=== PATIENT | female | born 2005 | race Caucasian/White ===

== ENCOUNTER 2024-01-19 11:09 | Emergency (ER) | payer OTHER, SELFPAY ==
[2024-01-19 11:14] VITALS: BP 111/77; BMI 22.6
[2024-01-19 11:55] LABS: % Basophils 0.5 % (0-2); % Immature Granulocytes 0.2 % (0-0.5); % Lymphocytes 29.9 % (20.5-51.1); % Monocytes 8.9 % (1.7-9.3); % Neutrophils 59.5 % (42.2-75.2); Absolute Eosinophils 0.1 10^3/uL (0-0.7); Absolute Lymphocytes 2.6 10^3/uL (1.2-3.4); Absolute Monocytes 0.8 10^3/uL (0.1-0.6); Absolute Neutrophils 5.2 10^3/uL (1.4-6.5); Hematocrit 35.4 % (37.0-47.0); Hemoglobin 11.4 g/dL (12.0-16.0); Mean Corp Hgb Conc. 32.2 g/dL (33.0-37.0); Mean Corpuscular Hgb 26.7 pg (27.0-31.0); Mean Corpuscular Volume 82.9 fL (81.0-99.0); Mean Platelet Volume 10.1 fL (7.4-10.4); Nucleated Red Blood Cells % 0 %; Platelet Count 297 10^3/uL (130-400); Red Blood Cell Count 4.27 10^6/uL (4.20-5.40); Red Cell Dist. Width 14.2 % (11.5-14.5); White Blood Cell Count 8.7 10^3/uL (4.8-10.8)
[2024-01-19 12:09] LABS: ALT (SGPT) 16 U/L (0-35); AST (SGOT) 29 U/L (14-36); Albumin 4.5 g/dl (3.5-5.0); Alkaline Phosphatase 79 U/L (38-126); Blood Urea Nitrogen 13 mg/dl (7-17); Carbon Dioxide 26 mmol/L (22-30); Chloride 105 mmol/L (98-107); Estimated Creatinine Clearance 102 ml/min; Glucose 90 mg/dl (70-99); Potassium 4.3 mmol/L (3.5-5.1); Sodium 137 mmol/L (135-145); Total Bilirubin 0.3 mg/dl (0.2-1.3); Total Protein 7.3 g/dl (6.3-8.2); eGFR > 60.00
--- NOTE | 2024-01-19 13:06 | ED.GENMED ---
History of Present Illness
General
Chief Complaint: Vaginal Bleeding
Source: patient
Exam Limitations: none
Time Seen by Provider: 01/19/24 12:47
Nursing documentation reviewed up to this point in time: agreed with
Travel History
Have you had any contact with someone who has COVID-19?: No
Do you have any symptoms of coronavirus? Fever > 100 degrees, chills, cough, shortness of breath, sore throat, loss of taste or smell, muscle aches, or headache?: No
History of Present Illness
History of Present Illness:
Patient status post elective 'medical ' [address] [facility], at a time when she was approximately 10 weeks , presents to ED secondary to persistent bleeding since taking the medication. Patient was advised to follow-up
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 via phone call after treatment, but has not done so. Denies fever or chills. Denies nausea or vomiting. Patient reports passage of bright red blood, without blood clots. Denies dizziness or weakness.
Denies shortness of breath. Patient otherwise is healthy without any medical problems. Patient has been 1 additional time, and has a 4-year-old child at home.
Review of Systems
Review of Systems
Allergies reviewed?: Yes
All Other Systems: ROS reviewed and negative except as documented in HPI and ROS
Constitutional: Reports no symptoms; Denies fever
EENT: Reports no symptoms
Respiratory: Reports no symptoms; Denies trouble breathing
Cardiac: Reports no symptoms
ABD/GI: Reports abdominal pain; Denies vomiting
: Reports bleeding
Musculoskeletal: Reports no symptoms
Skin: Reports no symptoms
Neurological: Reports no symptoms; Denies dizzy or weakness
Phy Exam
Physical Exam
Physical Exam:
Physical Exam
General: no apparent distress, not acutely ill. afebrile
Head: nc/at. eomi
Neck: supple. normal range of motion.
Abdomen: normal bowel sounds. not tender.
Pelvis: (SULLY Rosales, at bedside): speculum exam - no active bleeding noted
Neuro: alert and oriented. no focal neurological deficits
Skin: no rash
Psychiatric: well kept. interactive and cooperative
Extremities: no edema. no calf tenderness.
Course
Orders/Labs/Results
Orders:
Orders
01/19/24 11:40
CMP [Comprehensive Metabolic Panel] Urgent
01/19/24 11:41
Type+Screen Urgent
Beta HCG Quantitative Urgent
Complete Blood Count/With Diff Urgent
01/19/24 12:49
Add On- LAB Urgent
Tests Added?: serum HCG, quantitative
01/19/24 13:31
US Pelvis W Transvag Combined Urgent
Comment:
Reason For Exam: vag bleeding, s/p medical
Abnormal Lab Results
01/19/24 01/19/24
11:40 11:41
Hgb 11.4 L g/dL
(12.0-16.0)
Hct 35.4 L %
(37.0-47.0)
MCH 26.7 L pg
(27.0-31.0)
MCHC 32.2 L g/dL
(33.0-37.0)
Absolute Monos (auto) 0.8 H 10^3/uL
(0.1-0.6)
Creatinine 0.5 L mg/dL
(0.6-1.0)
Antibody Screen Positive A
(Negative)
01/19/24 11:41
01/19/24 11:40
Vital Signs
Initial and Last Documented VS:
Initial Vital Signs
Temp Pulse Resp BP Pulse Ox
98.4 F 102 20 111/77 99
01/19/24 11:14 01/19/24 11:14 01/19/24 11:14 01/19/24 11:14 01/19/24 11:14
Last Documented Vital Signs
Temp Pulse Resp BP Pulse Ox
98.4 F 102 20 111/77 99
01/19/24 11:14 01/19/24 11:14 01/19/24 11:14 01/19/24 11:14 01/19/24 11:14
MDM/Problems Addressed
MDM/Problems Addressed:
Per patient, patient received Rhogam during initial medical treatment 8 weeks ago.
H/H stable. No active bleeding noted on exam.
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 Advised return to ED immediately with worsening symptoms.
*Critical Care Note
Total Time (30-74mins, 75-104mins- exclusive of procedures): Not Applicable
ED Attending Note
-
Portions of this chart may have been created with voice recognition software.� Occasional wrong word or��sound alike� substitutions may have occurred due to the inherent limitations of voice recognition software.
Discharge Plan
Departure
Patient Disposition: Home (Routine Discharge)
Date of Disposition: 01/19/24
Time of Disposition: 16:34
Patient with high blood pressure during this ER visit?: No
Discharge Problem:
Vaginal bleeding
Instructions: Miscarriage (DC)
Referrals:
Mirza Conti PA-C [Family Provider] -
Stand Alone Forms: Return to Work
Activity Restrictions/Additional Instructions:
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 In ED, US revealed possibility of retained products of conception, which may be contributing to your continual vaginal bleeding.
Interventions
Interventions:
*Risk Screen - Suicide Last Done: 01/19/24 11:14
*General Assessment Last Done: 01/19/24 13:07
*Neglect/Abuse Screening Last Done: 01/19/24 11:14
ED- Fall Risk Assessment Last Done: 01/19/24 16:47
*ED COVID-19 Vaccine History Last Done: 01/19/24 11:14
*Nursing Disposition Last Done: 01/19/24 16:47
ED-Female Genitourinary Assessment Last Done: 01/19/24 13:06
Discharge Date and Time
Discharge Date/Time: 01/19/24 16:47
Print Language: MONGOLIAN
[2024-01-19 14:27] LABS: Beta HCG Quantitative 15.78 mIU/ml
== END 2024-01-19 16:47 | disposition home or self-care (01) ==
LOC: EMR 11:09
PROVIDERS: Emergency Medicine; EMERGENCY PHYSICIAN Emergency Medicine; FAMILY PHYSICIAN Physician Assistant
DX: N93.9 Abnormal uterine and vaginal bleeding, unspecified (principal)
CPT/HCPCS: 99284; 76830; 76856; 80053; 84702; 85025; 86850; 86870; 86900; 86901

== ENCOUNTER → 2024-11-20 11:44 | Outpatient (REF) | payer OTHER, SELFPAY | LOC: RAD 11:44 | PROVIDERS: ATTENDING PHYSICIAN Physician Assistant Medical | DX: M54.50 Low back pain, unspecified (principal) | CPT/HCPCS: 72110; 73502 ==

== ENCOUNTER 2024-12-02 12:00 | Emergency (ER) | payer OTHER, SELFPAY ==
[2024-12-02 12:03] VITALS: BP 107/73
[2024-12-02 12:59] VITALS: BMI 23.9
--- NOTE | 2024-12-02 14:15 | ED.GENMED ---
History of Present Illness
General
Chief Complaint: Musculo-Skeletal Complaint
Source: patient
Exam Limitations: none
Time Seen by Provider: 12/02/24 13:56
Nursing documentation reviewed up to this point in time: agreed with
History of Present Illness
History of Present Illness:
19-year-old female with no past medical history presents emergency department today with concerns of bilateral calf pain that started yesterday. She states that this happened without any injury. She reports that she noticed to yesterday when she
was sitting on the couch. She also noted that she felt like both legs felt swollen. She denies any burning or numbness or tingling sensation in her lower extremities. Patient states that she does have a history of degenerative disc disease and
reports that occasionally she will get paresthesias in her right leg but is not currently experiencing this. She denies any low back pain currently. She denies any difficulty ambulating. She denies any recent falls. She states that she does not
exercise and denies any overuse injury. She denies any recent long distance travel, any chest pain, any shortness of breath, any use of oral contraceptives. She denies any fevers or chills nausea vomiting abdominal pain. She denies any redness
to her lower extremities. She states that at times will feel like a cramping sensation but states that the calves are tender to her palpation.
Review of Systems
Review of Systems
All Other Systems: ROS reviewed and negative except as documented in HPI and ROS
Phy Exam
Physical Exam
Physical Exam:
General: Patient is well appearing and in no acute distress; non-toxic
Skin: Warm and dry, no rashes or lesions
Head: Normocephalic, atraumatic
Eyes: Sclera non-icteric. EOMs intact.
Cardiac: Regular rate
Peripheral Vascular: No lower extremity swelling or edema obvious to me on my exam, calves symmetric. 2+ dorsalis pedis and posterior tibial pulses bilaterally.
Pulm: Normal respiratory effort
Musculoskeletal: No bony tenderness to palpation of the bilateral lower extremities, no palpable bony deformities. 5/5 strength in bilateral lower extremeties.
Neuro: CN II-XII intact, no focal neurologic deficits. Sensation intact bilaterally.
Psychiatric: Appropriate mood and affect.
Course
Orders/Labs/Results
Orders:
Orders
12/02/24 14:11
Venous Doppler Lwr Ext Bilat [US Periph Venous LOWER Ext Morales] Urgent
Comment:
Reason For Exam: bilateral lower ext pain and swelling
12/02/24 14:15
Complete Blood Count/With Diff Urgent
Comprehensive Metabolic Panel Urgent
Abnormal Lab Results
12/02/24
14:15
Hgb 11.6 L g/dL
(12.0-16.0)
Hct 35.6 L %
(37.0-47.0)
MCHC 32.6 L g/dL
(33.0-37.0)
MPV 10.6 H fL
(7.4-10.4)
Absolute Monos (auto) 0.7 H 10^3/uL
(0.1-0.6)
Creatinine 0.5 L mg/dL
(0.6-1.0)
12/02/24 14:15
12/02/24 14:15
Vital Signs
Initial and Last Documented VS:
Initial Vital Signs
Temp Pulse Resp BP Pulse Ox
98.2 F 90 16 107/73 100
12/02/24 12:03 12/02/24 12:03 12/02/24 12:03 12/02/24 12:03 12/02/24 12:03
Last Documented Vital Signs
Temp Pulse Resp BP Pulse Ox
98.2 F 88 18 108/76 100
12/02/24 12:03 12/02/24 16:09 12/02/24 16:09 12/02/24 16:09 12/02/24 16:09
MDM/Problems Addressed
Differential Diagnosis Includes:
ddx include DVT, cellulitis, muscle strain/sprain, electrolyte derangement
MDM/Problems Addressed:
19-year-old female with no past medical history who presents emergency department today with concerns of bilateral lower extremity pain which started yesterday. She denies any difficulty ambulating. She denies any recent falls or injury to the
area. She is no obvious DVT risk factors. On exam, she has no evidence of significant lower extremity swelling and she has warm well-perfused extremities with strong distal pulses. Sensation intact and strength 5 out of 5 bilaterally. Ultrasound
is negative for any DVT. CBC and CMP unremarkable. Suspect muscle strain. Recommended to apply compression with Oli wrap's and to try elevating her legs at home and follow closely with her PCP and continue monitor her symptoms should she notice
any acute worsening. Return precautions discussed. Patient stable for discharge
Chronic conditions affecting care:
n/a
*Pulse Oximetry
Patient hypoxic: no
*Critical Care Note
Total Time (30-74mins, 75-104mins- exclusive of procedures): Not Applicable
Data Reviewed
Review of Other/Old Records Reveals: Records (Reviewed ER physician documentation from 01/19/2024 patient was seen for bleeding after medical )
Source: patient and records
ED Attending Note
-
Portions of this chart may have been created with voice recognition software.� Occasional wrong word or��sound alike� substitutions may have occurred due to the inherent limitations of voice recognition software.
Discharge Plan
Departure
Patient Disposition: Home (Routine Discharge)
Date of Disposition: 12/02/24
Time of Disposition: 16:09
Patient with high blood pressure during this ER visit?: No
Condition: Good
Discharge Problem:
Bilateral calf pain
Instructions: Swelling, Lower Extremity Muscle Strain (DC)
Referrals:
Dank Wright, [Primary Care Provider] -
Activity Restrictions/Additional Instructions:
Please schedule appointment with your primary care provider in the next few days for reassessment.
Please keep your legs elevated at home. Compression with oli wrap may also help with your symptoms.
PLEASE RETURN EMERGENCY DEPARTMENT TODAY SHOULD TO EXPERIENCE CHEST PAIN, SHORTNESS OF BREATH, LIGHTHEADEDNESS OR DIZZINESS, LOSS OF SENSATION OR LOWER EXTREMITIES, PALLOR IN YOUR LOWER EXTREMITIES, OR ANY OTHER SIGNS OR SYMPTOMS WORRISOME TO YOU.
Interventions
Interventions:
*Risk Screen - Suicide Last Done: 12/02/24 12:03
*General Assessment Last Done: 12/02/24 12:55
*Neglect/Abuse Screening Last Done: 12/02/24 12:03
*ED COVID-19 Vaccine History Last Done: 12/02/24 12:55
*Nursing Disposition Last Done: 12/02/24 16:09
ED-Musculoskeletal Assessment Last Done: 12/02/24 12:55
Discharge Date and Time
Discharge Date/Time: 12/02/24 16:18
Print Language: LAO
[2024-12-02 14:38] LABS: % Basophils 0.5 % (0-2); % Immature Granulocytes 0.1 % (0-0.5); % Neutrophils 49.4 % (42.2-75.2); Absolute Eosinophils 0.1 10^3/uL (0-0.7); Absolute Lymphocytes 3.2 10^3/uL (1.2-3.4); Absolute Monocytes 0.7 10^3/uL (0.1-0.6); Absolute Neutrophils 3.9 10^3/uL (1.4-6.5); Hematocrit 35.6 % (37.0-47.0); Hemoglobin 11.6 g/dL (12.0-16.0); Mean Corp Hgb Conc. 32.6 g/dL (33.0-37.0); Mean Corpuscular Hgb 27.2 pg (27.0-31.0); Mean Corpuscular Volume 83.6 fL (81.0-99.0); Mean Platelet Volume 10.6 fL (7.4-10.4); Nucleated Red Blood Cells % 0 %; Platelet Count 251 10^3/uL (130-400); Red Blood Cell Count 4.26 10^6/uL (4.20-5.40); Red Cell Dist. Width 14.1 % (11.5-14.5); White Blood Cell Count 7.9 10^3/uL (4.8-10.8)
[2024-12-02 14:55] LABS: ALT (SGPT) 15 U/L (0-35); AST (SGOT) 19 U/L (14-36); Alkaline Phosphatase 76 U/L (38-126); Blood Urea Nitrogen 12 mg/dl (7-17); Calcium 9.6 mg/dl (8.4-10.2); Carbon Dioxide 25 mmol/L (22-30); Chloride 105 mmol/L (98-107); Estimated Creatinine Clearance 101 ml/min; Glucose 92 mg/dl (70-99); Sodium 137 mmol/L (135-145); Total Bilirubin 0.3 mg/dl (0.2-1.3); Total Protein 6.8 g/dl (6.3-8.2); eGFR > 60.00
[2024-12-02 16:09] VITALS: BP 108/76
== END 2024-12-02 16:18 | disposition home or self-care (01) ==
LOC: EMR 12:00
PROVIDERS: Physician Assistant; EMERGENCY PHYSICIAN Emergency Medicine; PRIMARYCARE PHYSICIAN Family Medicine
DX: M79.661 Pain in right lower leg (principal); M79.662 Pain in left lower leg
CPT/HCPCS: 99284; 80053; 85025; 93970

== ENCOUNTER → 2025-02-25 10:08 | Outpatient (REF) | payer OTHER, SELFPAY | LOC: RAD 10:08 | PROVIDERS: ATTENDING PHYSICIAN Physician Assistant Medical | DX: M25.512 Pain in left shoulder (principal); M25.511 Pain in right shoulder; M54.9 Dorsalgia, unspecified | CPT/HCPCS: 72050; 72072; 73030 ==

== ENCOUNTER 2025-08-24 10:37 | Emergency (ER) | payer OTHER, SELFPAY ==
[2025-08-24 10:45] VITALS: BP 112/73
[2025-08-24 11:10] LABS: Hematocrit 38.2 % (37.0-47.0); Hemoglobin 12.6 g/dL (12.0-16.0); Mean Corp Hgb Conc. 33.0 g/dL (33.0-37.0); Mean Corpuscular Volume 85.3 fL (81.0-99.0); Nucleated Red Blood Cells % 0 %; Platelet Count 251 10^3/uL (130-400); Red Cell Dist. Width 14.4 % (11.5-14.5)
[2025-08-24 11:17] LABS: HCG, Serum Qualitative Screen Negative
[2025-08-24 11:26] LABS: ALT (SGPT) 18 U/L (0-35); AST (SGOT) 19 U/L (14-36); Albumin 4.5 g/dl (3.5-5.0); Alkaline Phosphatase 68 U/L (38-126); Blood Urea Nitrogen 11 mg/dl (7-17); Calcium 9.6 mg/dl (8.4-10.2); Carbon Dioxide 26 mmol/L (22-30); Chloride 105 mmol/L (98-107); Glucose 93 mg/dl (70-99); Potassium 4.3 mmol/L (3.5-5.1); Sodium 137 mmol/L (135-145); Total Protein 7.6 g/dl (6.3-8.2); eGFR > 60.00
--- NOTE | 2025-08-24 12:09 | ED.GENMED ---
History of Present Illness
<Ryanne Chen MD, Resident - Last Filed: 08/24/25 12:44>
General
Chief Complaint: Fainting/Passed Out
Source: patient
Time Seen by Provider: 08/24/25 11:40
History of Present Illness
History of Present Illness:
Patient is a 20-year-old female, presented to the ED with dizziness, headache, tiredness and a feeling that she would pass out.
According to the patient, she has been having these recurrent episodes of dizziness for the last year which have become more frequent over the last 6 months and now she experiences them at least 3 times a month where she completely loses
consciousness. Today while she was at work, she felt like she was going to pass out, she saw it coming and just wanted to be in a safe place like a hospital so that she can be evaluated and managed appropriately. It comes in cycles, she feels
exhausted few days before until she passes out. Her last menstrual period was 3 days ago. Reports numbness and tingling's of hand, reticular pattern redness in thighs
She is scheduled for an MRI of the brain by her primary care physician on September 07, for suspected neurological issues like MS
She did see a brass sorter in [place] who recommended that she has sinus arrhythmia and nothing related to her heart that could cause the symptoms. She does run low blood pressures up to 80/40 and he would like to start her on midodrine but he
had has to wait for the MRI to come back.
Review of system dizziness, headache, tiredness, feeling weak. Denies any fever, chills, chest pain, abdominal pain, recent weight gain or loss
Past History
<Ryanne Chen MD, Resident - Last Filed: 08/24/25 12:44>
Past History
ED Past Medical History: None
ED Past Surgical History: Gynecological (D&C in December 2023)
Social History
Tobacco: Non-smoker
Alcohol: None
Drug: None
Personal: Single
Living: alone
Family History
Family History: Other (Thyroid issues, epilepsy, seizures, stroke)
Phy Exam
<Ryanne Chen MD, Resident - Last Filed: 08/24/25 12:44>
General Physical Exam
General Presentation: moderate distress
General Skin: warm and dry
General Habitus: normal
General Mental: alert
Cardiovascular Exam
Cardiovascular Exam: regular rate/rhythm, no gallop, no JVD, no murmur and normal peripheral pulses
Pulmonary Exam
Pulmonary Exam: lungs clear, no respiratory distress, no rales, no crackles and no rhonchi
Gastrointestinal Exam
Gastrointestinal Exam: normal bowel sounds, non tender and soft
Neurological Exam
Neurological Exam: alert, oriented x3, no sensory deficits and other (double vision)
Musculoskeletal Exam
Musculoskeletal Exam: full ROM
Skin Exam
Skin Exam: other (Livedo reticularis of thigh)
Course
<Ryanne Chen MD, Resident - Last Filed: 08/24/25 12:44>
Orders/Labs/Results
Orders:
Orders
08/24/25 10:38
Electrocardiogram (*1) Urgent
Reason for Study: Syncope
EKG- Treatment ONCE
08/24/25 10:52
Test Result ONCE
08/24/25 11:01
Complete Blood Count/With Diff Urgent
Comprehensive Metabolic Panel Urgent
HCG, Serum Qualitative Screen Urgent
Abnormal Lab Results
08/24/25
11:01
Monocytes % 9.4 H %
(1.7-9.3)
08/24/25 11:01
08/24/25 11:01
Vital Signs
Initial and Last Documented VS:
Initial Vital Signs
Temp Pulse Resp BP Pulse Ox
97.6 F 77 18 112/73 100
08/24/25 10:45 08/24/25 10:45 08/24/25 10:45 08/24/25 10:45 08/24/25 10:45
Last Documented Vital Signs
Temp Pulse Resp BP Pulse Ox
97.6 F 77 18 11273 100
08/24/25 10:45 08/24/25 10:45 08/24/25 10:45 08/24/25 10:45 08/24/25 12:20
<Marlon Quintanilla, DO - Last Filed: 08/24/25 12:35>
Orders/Labs/Results
Orders:
Orders
08/24/25 10:38
Electrocardiogram (*1) Urgent
Reason for Study: Syncope
EKG- Treatment ONCE
08/24/25 10:52
Test Result ONCE
08/24/25 11:01
Complete Blood Count/With Diff Urgent
Comprehensive Metabolic Panel Urgent
HCG, Serum Qualitative Screen Urgent
Abnormal Lab Results
08/24/25
11:01
Monocytes % 9.4 H %
(1.7-9.3)
08/24/25 11:01
08/24/25 11:01
Vital Signs
Initial and Last Documented VS:
Initial Vital Signs
Temp Pulse Resp BP Pulse Ox
97.6 F 77 18 112/73 100
08/24/25 10:45 08/24/25 10:45 08/24/25 10:45 08/24/25 10:45 08/24/25 10:45
Last Documented Vital Signs
Temp Pulse Resp BP Pulse Ox
97.6 F 77 18 11273 100
08/24/25 10:45 08/24/25 10:45 08/24/25 10:45 08/24/25 10:45 08/24/25 12:20
<Ryanne Chen MD, Resident - Last Filed: 08/24/25 12:44>
MDM/Problems Addressed
Differential Diagnosis Includes:
Near syncope
MDM/Problems Addressed:
Patient had an episode of near syncope, last menstrual period 3 days ago, test negative in the ED.
Blood work looks fine including CBC and CMP
EKG with no significant findings
Reassurance provided
Plan to discharge and follow-up with PCP on outpatient basis
<Ryanne Chen MD, Resident - Last Filed: 08/24/25 12:44>
*Pulse Oximetry
SaO2: 100
Oxygen Mode of Delivery: Room air
Patient hypoxic: no
*Critical Care Note
Total Time (30-74mins, 75-104mins- exclusive of procedures): Not Applicable
ED Attending Note
<Ryanne Chen MD, Resident - Last Filed: 08/24/25 12:44>
-
Portions of this chart may have been created with voice recognition software.� Occasional wrong word or��sound alike� substitutions may have occurred due to the inherent limitations of voice recognition software.
<Marlon Quintanilla, DO - Last Filed: 08/24/25 12:35>
ED Attending Note
Patient seen and examined by attending physician: Yes
I performed a history and physical exam of patient and discussed management with resident, I reviewed resident's note and agree with documented findings and plan of care.: Yes
ED Attending Note:
I have reviewed and agree with history treatment plan by Ryanne Chen MD. my exam revealed
Physical Exam
General: no apparent distress, not acutely ill
Neck: supple. no meningeal signs. normal posterior pharynx
Heart: s1/s2 regular rate and rhythm, no murmur. equal radial
pulses.
HEENT: Pupils equal round reactive to light, EOMI
Lungs: no acute respiratory distress. clear bilaterally
Abdomen: normal bowel sounds. not tender. no CVAT
Neuro: alert and oriented. no focal neurological deficits cranial nerves II through XII intact
Skin: no rash
Psychiatric: well kept. interactive and cooperative
Extremities: no edema. no calf tenderness. negative homans. good distal pulses
Nontoxic well-appearing 20-year-old female with near syncope episode, possibly POTS. Normal exam. Do not suspect CVA or dysrhythmia patient will follow-up with cardiology, primary care and neurology. No indication for admission or further workup.
Discharge Plan
Departure
Patient Disposition: Home (Routine Discharge)
Date of Disposition: 08/24/25
Time of Disposition: 12:38
Patient with high blood pressure during this ER visit?: No
Discharge Problem:
Near syncope
Instructions: Syncope (Fainting) (DC)
Referrals:
Berta Crow PA-C [Family Provider, Family Practice]
Stand Alone Forms: Return to Work
Activity Restrictions/Additional Instructions:
FOLLOW UP WITH PCP
MRI SCHEDULED FOR
REASSURANCE PROVIDED
Interventions
Interventions:
*Risk Screen - Suicide Last Done: 08/24/25 10:45
ED- Cardiac Assessment Last Done: 08/24/25 11:05
ED- Neurological Assessment Last Done: 08/24/25 11:05
Discharge Date and Time
Print Language: MALAY
[2025-08-24 12:49] VITALS: BP 104/64
== END 2025-08-24 12:49 | disposition home or self-care (01) ==
LOC: EMR 10:37
PROVIDERS: EMERGENCY PHYSICIAN Emergency Medicine; FAMILY PHYSICIAN Physician Assistant Medical
DX: R55 Syncope and collapse (principal); R20.0 Anesthesia of skin
CPT/HCPCS: 99284; 80053; 84703; 85025; 93005

== ENCOUNTER → 2025-09-07 12:03 | Outpatient (REF) | payer OTHER, SELFPAY | LOC: PAVMRI 12:03 | PROVIDERS: ATTENDING PHYSICIAN Physician Assistant Medical | DX: M51.362 Other intervertebral disc degeneration, lumbar region with discogenic back pain and lower extremity pain (principal); R51.9 Headache, unspecified; R20.2 Paresthesia of skin; G89.29 Other chronic pain; R42 Dizziness and giddiness | CPT/HCPCS: 70551; 72148 ==